=== PATIENT | male | born 1985 | race Hispanic/Latino ===

== ENCOUNTER 2024-07-07 12:13 | Emergency (ER) | payer SELFPAY ==
[~2024-07-07] VITALS: Ht 167.6 cm; Wt 77.1 kg
[2024-07-07 12:46] VITALS: PULSE 79; RESP 18; TEMP 97.8; O2SAT 99
[2024-07-07] MEDS ORDERED: PREDNISONE20 MG PO (12:53)
[2024-07-07] MEDS ORDERED: DEXAMETHASONE SOD PHOS 10 MG/1 ML VIAL ONE (12:55)
[2024-07-07] MEDS: DEXAMETHASONE SOD PHOS 10 MG/1 ML VIAL IM ONE (12:59)
== END 2024-07-07 14:23 | disposition home or self-care (01) ==
LOC: ER 12:56
DX: L23.7 Allergic contact dermatitis due to plants, except food (principal)
CPT/HCPCS: 99283; J1100